=== PATIENT | male | born 1950 | race Caucasian/White ===

== ENCOUNTER → 2017-01-06 | Day surgery (SDC) | payer MEDICARE ==
[~2017-01-06] VITALS: Ht 180.3 cm; Wt 108.0 kg
[~2017-01-06] MED LIST: ACETAMINOPHEN 1000 MG/100 ML 0 ML IV ONE; AMLO5TAB2 PO; AMPICILLIN-SULBACTAM INJ 3 GM VIAL ONE; AMPICILLIN/SULBAC 3 GM/NS 100 ML IV SCH; BYST10TA2 PO; CELE1CAP8 PO; CHLORHEXIDINE GLUCONATE 2 % 1 PACK (2 CLOTHS) TOPICAL PRN; DEXAMETHASONE SOD PHOS 4 MG/ML VIAL IV ONE; DIAZ10TA PO; DOXY100C PO; ERYT2GEL9 TOPICAL; FAMOTIDINE 20 MG/2 ML VIAL ONE; FOLI400T PO; GABA300C5 PO; GLYCOPYRROLATE 0.4 MG/2 ML VIAL IV ONE; HYDR-3801 PO; INSULIN HUMAN REGULAR 1,000 UNITS/10 ML VIAL SQ PRN; LACTATED RINGER'S 1000 ML IV PRN; LIFI1DRO EACH EYE; LOSA100T3 PO; MEDR4PAK PO; METH2.5T PO; METOPROLOL TARTRATE 25 MG TAB PO PRN; MICROFIBRILLAR COLLAGEN HEMOSTAT 1 GM PKT ONE; MIDAZOLAM HCL 2 MG/2 ML VIAL ONE; MORPHINE SULFATE 4 MG/ML INJ ONE; NEOSTIGMINE 3 MG/3 ML SYR IV ONE; OFLOXACIN 0.3% OPTH SOLN 5 ML BTL ONE; ONDANSETRON HCL 4 MG/2 ML VIAL IV PUSH ONE; OXYMETAZOLINE HCL 0.05% 15 ML NASAL SPRAY ONE; POVIDONE IODINE 5% (ANTISEPSIS KIT) 4 APPLICATIONS EACH NARE PRN; PROPOFOL 200 MG/20 ML AMP IV ONE; SODIUM CHLORID 0.9% 500 ML IV PRN; SODIUM CHLORIDE 0.9% INJ 100 ML ONE; SOMA350T PO; TOBR0.3S EACH EYE; TRAM50TA PO
[2017-01-06] MEDS: LIDOCAINE 0.5%/EPINEPHrine 1:200,000 SOLN 50 ML VIAL ONE ×2 (08:04→08:05)
[2017-01-06 10:15] VITALS: BP 116/78; PULSE 71; RESP 16; TEMP 98; O2SAT 96
--- NOTE | 2017-01-06 15:23 | EKG ---
Date Performed: 01/06/2017 Time Performed: 06:58:50 PTAGE: 66 years EKG: SINUS BRADYCARDIA MINIMAL VOLTAGE CRITERIA FOR LVH, CONSIDER NORMAL VARIANT POSSIBLE ANTERI OR MYOCARDIAL INFARCTION INFERIOR MYOCARDIAL INFARCTION ABNORMAL ECG Compared to prior tracing no sig nificant change PREVIOUS TRACING : 01/26/2008 13.08 DOCTOR: Winston Marcelino Interpretating Date/Time 01/06/2017 15:23:27
--- NOTE | 2017-01-26 08:35 | MP ---
cc: ASHELY OSORIO M.D. DATE OF OPERATION January 06, [address] Ashely osorio PREOPERATIVE DIAGNOSES 1. Left eustachian tube dysfunction. 2. Lesion of unknown behavior involving the left nasopharynx and eustachian tube ostium. INDICATIONS Ruiz Meek is a 67-year-old man in good health. He complains of a long history of obstruction in his left ear. Examination reveals atelectatic left tympanic membrane with middle ear effusion and nasopharyngoscopy reveals a soft tissue lesion involving the left eustachian tube ostium and the nasopharynx. DESCRIPTION OF OPERATION The patient was taken to OR #2 and placed in the supine position. Following induction of general anesthesia and intubation, the left ear was examined under microscope and cleaned with a curette. A myringotomy was made in the posterior inferior quadrant and the tympanum was aspirated of a thick mucoid effusion. The T-type pressure equalizing tube was then advanced into the opening and the canal was filled with Floxin otic drops. The nasopharyngeal lesion was addressed next. The nose was packed bilaterally with cotton pledgets saturated in 0.05% oxymetazoline. These remained in place for 2 minutes and then were removed. The nasopharynx was examined endoscopically and the lesion on the left eustachian tube was identified. This was removed in a piecemeal fashion using Blakesley forceps passed transnasally. This appeared to be polypoid in some portions and cystic in others. The fragments of the lesion were then passed off the field for histological examination and the defect in the nasopharynx and eustachian tube mucosa were cauterized using suction Bovie at 35 perkins. The stomach was aspirated of a few cc's of cloudy gastric contents using a #18 Tad sump NG tube and when this was completed the mouth gag was removed and the procedure was terminated. The patient was reversed from anesthesia and then taken to recovery in good condition. There were no complications. Blood loss was 10 mL. MD BULL Luther/CIARA /7:29 AM /8:31 AM
== END | disposition home or self-care (01) ==
LOC: PHSDC 06:03
PROVIDERS: ATTEND Otolaryngology
DX: H69.82 Other specified disorders of Eustachian tube, left ear (principal); H66.12 Chronic tubotympanic suppurative otitis media, left ear; J39.2 Other diseases of pharynx; Z01.810 Encounter for preprocedural cardiovascular examination
CPT/HCPCS: 00170; 42808; 69436; 88304; 93005; J0295; J1100; J2250; J2270; J2405; J2710; J3010; J7120; J0131

== ENCOUNTER 2017-12-22 07:35 | Observation (INO) ==
[~2017-12-22 07:35] MED LIST changes: -ACETAMINOPHEN 1000 MG/100 ML 0 ML IV ONE; -AMLO5TAB2 PO; -AMPICILLIN-SULBACTAM INJ 3 GM VIAL ONE; -AMPICILLIN/SULBAC 3 GM/NS 100 ML IV SCH; -BYST10TA2 PO; -CELE1CAP8 PO; -CHLORHEXIDINE GLUCONATE 2 % 1 PACK (2 CLOTHS) TOPICAL PRN; -DEXAMETHASONE SOD PHOS 4 MG/ML VIAL IV ONE; -DIAZ10TA PO; -DOXY100C PO; -ERYT2GEL9 TOPICAL; -FAMOTIDINE 20 MG/2 ML VIAL ONE; -FOLI400T PO; -GABA300C5 PO; -GLYCOPYRROLATE 0.4 MG/2 ML VIAL IV ONE; -HYDR-3801 PO; -INSULIN HUMAN REGULAR 1,000 UNITS/10 ML VIAL SQ PRN; -LACTATED RINGER'S 1000 ML IV PRN; -LIFI1DRO EACH EYE; -LOSA100T3 PO; +Lidocaine 1%/Epinephrine 1:100,000 Inj 20 ML Vial ONE; -MEDR4PAK PO; -METH2.5T PO; -METOPROLOL TARTRATE 25 MG TAB PO PRN; -MICROFIBRILLAR COLLAGEN HEMOSTAT 1 GM PKT ONE; -MIDAZOLAM HCL 2 MG/2 ML VIAL ONE; -MORPHINE SULFATE 4 MG/ML INJ ONE; -NEOSTIGMINE 3 MG/3 ML SYR IV ONE; -OFLOXACIN 0.3% OPTH SOLN 5 ML BTL ONE; -ONDANSETRON HCL 4 MG/2 ML VIAL IV PUSH ONE; -OXYMETAZOLINE HCL 0.05% 15 ML NASAL SPRAY ONE; -POVIDONE IODINE 5% (ANTISEPSIS KIT) 4 APPLICATIONS EACH NARE PRN; -PROPOFOL 200 MG/20 ML AMP IV ONE; -SODIUM CHLORID 0.9% 500 ML IV PRN; -SODIUM CHLORIDE 0.9% INJ 100 ML ONE; -SOMA350T PO; -TOBR0.3S EACH EYE; -TRAM50TA PO
[2017-12-22] MEDS ORDERED: Metoprolol Tartrate 25 MG Tablet PO ONE (07:53)
[2017-12-22] MEDS ORDERED: Chlorhexidine Gluconate 2% 1 Pack (2 Cloths) TOPICAL ONE (07:53)
[2017-12-22] MEDS ORDERED: Ampicillin/Sulbactam Inj 3 GM in Sodium Chloride 0.9% Inj 100 ML IV.SIG PRN (07:54)
[2017-12-22] MEDS ORDERED: Sodium Chlor 0.9% Inj 500 ML IV.SIG SCH (08:00)
[2017-12-22] MEDS ORDERED: fentaNYL Citrate Inj 100 MCG/2 ML Ampul ONE (09:41)
[2017-12-22] MEDS ORDERED: Neostigmine Inj 5 MG/5 ML Syringe IV.PUSH ONE (09:58)
[2017-12-22] MEDS ORDERED: Lidocaine PF 1% Inj 5 ML Syringe INFILTRATN ONE (09:58)
[2017-12-22] MEDS: Ampicillin/Sulbactam Inj 3 GM in Sodium Chloride 0.9% Inj 100 ML IV.SIG SCH (18:07)
[2017-12-23] MEDS: Ampicillin/Sulbactam Inj 3 GM in Sodium Chloride 0.9% Inj 100 ML IV.SIG SCH (02:53)
[2017-12-23 08:29] VITALS: BP 119/73; PULSE 58; RESP 18; TEMP 97; O2SAT 97
--- NOTE | 2018-01-11 07:32 | MP ---
cc: Kevin Madrid MD DATE OF OPERATION: 12/22/2017 SURGEON: Kevin Madrid MD. PREOPERATIVE DIAGNOSES: 1. Nasal airway obstruction. 2. Nasal septal deviation. 3. Hypertrophied inferior turbinates. POSTOPERATIVE DIAGNOSES: 1. Nasal airway obstruction. 2. Nasal septal deviation. 3. Hypertrophied inferior turbinates. PROCEDURE PERFORMED: 1. Open repair, nasal septal fracture. 2. Bilateral submucosal resection of inferior turbinates. INDICATIONS: The indications are documented in the history and physical. DETAILS OF PROCEDURE: The patient was taken to OR #2 and placed in the supine position. Following induction of general anesthesia and intubation, the nose was packed bilaterally with cotton pledgets saturated in 0.05% oxymetazoline. The septal mucosa and inferior turbinates were injected with a total of 6 mL of 1% Xylocaine with epinephrine 1:100,000. He was then prepped and draped for surgery. The packing was removed and a hemitransfixion incision was made in the left nasal vestibule; and through this incision, the septal mucosa was elevated bilaterally as far as the junction of the bony and cartilaginous septum. This exposed an end-on view of the quadrangular cartilage and revealed numerous comminuted septal fracture fragments extending into the nasal airway bilaterally, left greater than right. A cumulative area of 2 x 2.5 cm was removed in a piecemeal fashion using a Anne-Marie elevator and Ildefonso-Sandy forceps. This was completed, preserving 1.5 cm dorsal and caudal cartilaginous struts. The caudal cartilaginous strut was then mobilized completely from its location to the left of the maxillary crest. It was then returned to the midline and held in place there. This was completed. Mucosa was elevated from the bony septum and the bony septum and maxillary crest were removed using Ildefonso-Sandy forceps. The incision was then closed with a running suture of 4-0 chromic and the mucosal layer of the septum were approximated to each other with a quilting stitch of 4-0 plain gut. The inferior turbinates were then fractured out medially and stab incisions were opened along their inferior surfaces. Through these incisions, the submucosal soft tissue was reduced using a curette and preserving the conchal bone. Incisions were then cauterized using a suction Bovie at 45 perkins and the remnants of the inferior turbinates were then re-lateralized to the lateral nasal wall. The nose was then packed with Merocel tampons coated in mupirocin ointment and the procedure was terminated. The patient was reversed from anesthesia and taken to recovery in good condition. There were no complications. ESTIMATED BLOOD LOSS: 80 mL. MD BULL Luther/natalie , 07:18 AM , 07:24 AM
== END 2017-12-23 09:02 | disposition home or self-care (01) ==
LOC: PHSDC 07:35 → PH3 07:35 → HSDI 07:35
PROVIDERS: ADMIT Otolaryngology; ATTEND Otolaryngology